=== PATIENT | female | born 1970 | race Caucasian/White ===

== ENCOUNTER 2020-05-28 08:53 | Day surgery (SDC) | payer BC, OTHER ==
[2020-05-13 13:53] LABS: URINE BILIRUBIN NEGATIVE (Negative); URINE BLOOD TRACE (Negative); URINE CLARITY CLEAR; URINE COLOR YELLOW; URINE GLUCOSE-RANDOM* NEGATIVE (Negative); URINE KETONES NEGATIVE (Negative); URINE LEUKOCYTES-REFLEX NEGATIVE (Negative); URINE NITRITE-REFLEX NEGATIVE (Negative); URINE PROTEIN (DIPSTICK) NEGATIVE (Negative); URINE SPECIFIC GRAVITY >= 1.030 (1.005-1.035); URINE UROBILINOGEN 0.2 E.U./dl (0.2-1.0)
[2020-05-13 13:53] LABS: HEMATOCRIT 42.5 % (37.0-47.0); HEMOGLOBIN 14.4 gm/dL (12.0-15.0); MCH 30.5 pg (26.0-34.0); MCHC 33.9 g/dL (28.0-37.0); RBC 4.72 mil/uL (4.20-5.00); RDW 12.6 % (10.5-14.5); WBC 7.4 thou/uL (4.0-11.0)
[2020-05-13 14:01] LABS: ALBUMIN 3.7 g/dL (3.4-5.0); CALCIUM 9.2 mg/dL (8.5-10.1); CREATININE 0.9 mg/dL (0.6-1.0); POTASSIUM 4.1 mmol/L (3.5-5.1)
[2020-05-13 14:12] LABS: PROTIME 10.7 Seconds (9.3-11.4)
[~2020-05-28] VITALS: Ht 167.6 cm; Wt 68.0 kg
--- NOTE | ~2020-05-28 | O ---
[facility] [place] [address] OPERATIVE REPORT Name: REINALDO ISAACS Room #: 150-3 [facility] M.R.#: [id number] Admission: 05/28/20 Attend Phys: Pelon Jackman MD Discharge: Date of : 68 Report #: [id number] THIS REPORT FOR: cc: SAI RAYA Physician not on staff Pelon Jackman MD ~ CC: SAI RAYA Physician staff Pelon Jackman DATE OF SERVICE: 05/28/2020 PREOPERATIVE DIAGNOSIS: Right knee osteoarthritis. POSTOPERATIVE DIAGNOSIS: Right knee osteoarthritis. PROCEDURES: 1. Right total knee arthroplasty using Navio robotic system assistance. 2. Hardware removal, right tibia. SURGEON: Pelon Jackman MD. CHIROPRACTIC NEUROLOGIST: Mag [place] PA-C. INDICATIONS FOR CHIROPRACTIC NEUROLOGIST: Throughout the case, extensive retraction and manipulation of the knee was required. This was afforded to me by my environmental assistant. ANESTHESIA: LMA with an adductor canal block. IMPLANTS: [employer]hew size 5 Journey II BCS Oxinium femur, size 3 tibia, a size 11 polyethylene and a size 35 patella. TOURNIQUET TIME: 53 minutes. ESTIMATED BLOOD LOSS: 25 mL. COMPLICATIONS: None. SPECIMENS: None. CONDITION UPON LEAVING THE OPERATING ROOM: Stable. INDICATIONS FOR PROCEDURE: The patient is a 49-year-old female with right knee osteoarthritis. She is status post anterior cruciate ligament reconstruction many years ago. She does have metallic interference screws in her tibia and her femur, and we discussed the possibility of need for removal of these during her [facility] [address] [place] [address] OPERATIVE REPORT Name: REINALDO ISAACS Room #: 150-3 [facility] M.R.#: [id number] Admission: 05/28/20 Attend Phys: Pelon aJckman MD Discharge: Date of : 68 Report #: [id number] procedure. DESCRIPTION OF PROCEDURE: Risks, benefits, alternatives and complications were discussed in detail with the patient including but not limited to risk of anesthesia, risk of damage to nerves, arteries, blood vessels, risk for infection, bleeding, risk for continued knee pain, need for reoperation. Informed consent was obtained from the patient. Right knee was appropriately marked in the preoperative holding area. IV Ancef was given for preoperative antibiotics. She was brought to the operating room and placed in supine position on operating room table. LMA anesthesia was induced without complication. Tourniquet was placed on the right thigh and right extremity was prepped and draped in normal sterile fashion. Timeout was performed properly identifying the patient and procedure as well as the instrumentation and implants. All in the operating room were in agreement. Right lower extremity was exsanguinated, tourniquet was inflated. Tourniquet time was 53 minutes. Standard midline approach to the knee was made with 10 blade through the skin. Dissection was taken down sharply to the fascia and deep flaps were developed medially and laterally. Fresh 10 blade was used to make a medial parapatellar arthrotomy and there was severe lateral compartment osteoarthritis with moderate medial and patellofemoral osteoarthritis. The tibial interference screws were dissected off the proximal and medial tibia and removed with a screwdriver. Reference pins were placed in the femur and the tibia. The knee was then digitally mapped using the [email or web address] robotic system. We sized the size 5 femur with a size 3 tibia and a 10 spacer. After acceptance of the intraoperative plan, the distal femoral cut was made with a Navio bur. Distal femoral cutting block was pinned in place and distal femoral cut was made. Attention was turned to the tibia. Remainder of the menisci was removed with Bovie cautery. Tibial resection guide was pinned in place using the Navio for placement and tibial resection was made. Flexion and extension gaps were then checked and found to have good balance medially and laterally in flexion and extension. Tibia was sized, found to be a size 3. A size 3 tibial trial was placed, pinned and punched. Size 5 femoral trial was placed and the box cut was made. This was then trialed with a size 10 and then a size 11 polyethylene. Size 11 polyethylene demonstrated 1-2 mm of laxity medially and laterally throughout range of motion of the knee. A 9 mm was resected from the posterior surface of the patella and a size 35 patellar trial button was placed. Knee was taken through range of motion, found to be stable, found to have good patellar tracking. Trial components were removed. Bony ends were thoroughly irrigated with normal saline. A final size 3 tibia, size 5 Journey II BCS Oxinium femur and a size 35 patella were cemented in place using standard cementation techniques. While the cement cured, a periarticular injection consisting of morphine, ropivacaine, epinephrine, Toradol was placed around the knee joint capsule. After the cement cured, tourniquet was deflated. Hemostasis was obtained with Bovie cautery. A final size 11 polyethylene was placed. A gram of vancomycin was placed deep in the joint. The fascia was closed with 0 Vicryl, skin was closed with 2-0 Vicryl, 3-0 Monocryl, Dermabond and a HAYES [address] [address] OPERATIVE REPORT Name: REINALDO ISAACS Room #: 150-3 [facility] Isaías#: [id number] Admission: 05/28/20 Attend Phys: Pelon Jackman MD Discharge: Date of : 68 Report #: [id number] dressing was applied. The patient tolerated this procedure well and went to recovery room under care of anesthesia postoperatively. By: [id number] Pelon Jackman MD /nt
[~2020-05-28 08:53] MED LIST: ADDERALL 20 MG20 MG PO; CBD OIL PO; PROAIR HFA8.5 GM INH; XANAX1 MG PO
[2020-05-28 10:27] VITALS: BP 109/73
[2020-05-28 14:25] VITALS: BP 127/68
--- NOTE | 2020-05-28 15:02 | NUR ---
PATIENT ARRIVED ON UNIT FROM POST OP TO ROOM 447 REPORT WAS RECIEVED FROM POST OP. AT BEDSIDE. V.S 98.2 18 72 127/68 O2 SAT = 100 %RA. PT ALERT XS 4 NO PAIN OR RESP DISTRESS. WEIGHT = 150.0 LBS AND HEIGHT 5'6". ADMIT PAPERWORK COMPLETED. PT HAS POLAR PACK AND PICCO DRESSING TO RIGHT KNEE INTACT. HAS DAVID ERIC HOSE AND DAVID SCD'S ORDERED. WILL START IV FLUIDS ORDERED.
[2020-05-28 16:51] VITALS: BP 127/78
--- NOTE | 2020-05-28 17:30 | NUR ---
I have reviewed the documentation by JULEE SERRANO from 05/28/20 to 05/28/20 and I concur with it. ISMAEL REEVES, PT, DPT
--- NOTE | 2020-05-28 17:43 | NUR ---
PATIENT IS RESTING IN BED WAS GIVEN PRN PAIN PILL REQUESTED. PT IS GOING TO DISCHARGE SABA HOME TOMMORROW. PT IS GOING TO TRY TO USE BSC. PT WORKED WITH THERAPY TODAY BUT GOT DIZZY AND HAD TO REST. HAS PICCO AND ICE BAG TO LEFT HIP HAS SCD'S AND ERIC DOTSON. 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 IS PLEASANT AND COOPERATIVE WITH CARE.
--- NOTE | 2020-05-28 19:36 | NUR ---
PATIENT GIVEN PRN IV PAIN MED AND IV ABT INFUSING ORDERED. PT IS GETTING READY FOR BED.
[2020-05-28 19:53] VITALS: BP 104/39
--- NOTE | 2020-05-29 02:19 | NUR ---
ASSESSMENT COMPLETED. PT IS WALKING TO THE BATHROOM WITH SBA. POLAR FRANKY TO R KNEE, HAYES DRSG IN PLACE. PAIN FAIRLY MANAGED WITH NORCO, PT NEEDING IVP MORPHINE FOR BREAKTHROUGH HOOD AFTER WALKING TO THE BATHROOM,. AFEBRILE. PROGRESSING SLOWLY TOWARDS CARE GOALS.
[2020-05-29 06:08] LABS: HEMATOCRIT 35.2 % (37.0-47.0); HEMOGLOBIN 11.8 gm/dL (12.0-15.0); MCH 30.2 pg (26.0-34.0); MCHC 33.6 g/dL (28.0-37.0); MCV 89.9 fL (80.0-100.0); RBC 3.92 mil/uL (4.20-5.00); RDW 12.3 % (10.5-14.5); WBC 18.8 thou/uL (4.0-11.0)
[2020-05-29 08:02] VITALS: BP 107/63
[2020-05-29 10:22] VITALS: BP 107/63
[2020-05-29] MEDS ORDERED: ASPIR 8181 MG PO (11:35)
[2020-05-29] MEDS ORDERED: NEURONTIN 300M300 M2 PO (11:35)
[2020-05-29 11:56] VITALS: BP 115/63
[2020-05-29 12:02] VITALS: BP 115/63
--- NOTE | 2020-05-29 13:08 | NUR ---
I have reviewed the documentation by JULEE SERRANO from 05/29/20 to 05/29/20 and I concur with it. ISMAEL REEVES, PT, DPT
--- NOTE | 2020-05-29 13:12 | NUR ---
PT IS AOX4, VSS, PAIN CONTROLLED WITH PAIN ANALGESIC. PT IS UP WITH WALKER AND STANDBY ASSIST. TOLERATING DIET, RECEIVED DISCHARGE INSTRUCTIONS AND SCRIPTS. ICE PACK ON RIGHT HIP, HAYES DRESSING CDI ON RIGHT HIP. SKIN INTACT, NURSE EDUCATED ABOUT CALL LIGHT. WILL CONTINUE TO MONITOR.
--- NOTE | 2020-05-29 15:25 | NUR ---
ASSESSMENT: CM REVIEWED CHART AND SPOKE WITH PT. PT IS S/P KNEE REPLACEMENT. PT REPORTS LIVING IN A HOUSE WITH FAMILY. PT REPORTS SHE IS STAYING WITH HER PARENTS POST DISCHARGE. SHE REPORTS ABOUT 8 STEPS WITH HANDRAIL TO ENTER THE HOME AND NO STEPS SHE WILL HAVE TO USE INSIDE. PT REPORTS THAT SHE HAS A BORROWED ROLLATER WALKER. PHYSICAL THERAPY IS RECOMMENDING A FWW. CM SPOKE WITH PT WHO REPORTS NO PREFERENCE OF DME COMPANY. [employer] CAN NOT SERVICE DUE TO HER LOCATION. CM NOTIFIED [facility] WHO CAN SUPPLY WALKER. CM FAXED SCRIPT AND WALKER WAS DELIVERED TO [facility] PRIOR TO DISCHARGE. PT REPORTS HAVING OUTPATIENT THERAPY ARRANGED IN [place], [place]. PT REPORTS NO FURTHER NEEDS FROM .
== END 2020-05-29 13:19 | disposition home or self-care (01) ==
LOC: TBA 08:53 → OR 08:53 → TBA 09:03 → OR 10:07 → 4S 14:24 → OR 05-29 13:19
PROVIDERS: ATTEND Orthopaedic Surgery
DX: M17.11 Unilateral primary osteoarthritis, right knee (principal); M25.561 Pain in right knee; F41.9 Anxiety disorder, unspecified; Z98.890 Other specified postprocedural states; Z79.899 Other long term (current) drug therapy; Z87.891 Personal history of nicotine dependence; Z85.3 Personal history of malignant neoplasm of breast; Z90.710 Acquired absence of both cervix and uterus; Z91.041 Radiographic dye allergy status; Z88.8 Allergy status to other drugs, medicaments and biological substances
CPT/HCPCS: 50010; 50101; 50415; 50954; 51130; 51225; 51320; 53000; 53078; 53365; 54118; 56527; 56528; 57095; 57103; 57110; 57127; 62110; 62900; 64039; 70005